=== PATIENT | female | born 1975 | race Caucasian/White ===

== ENCOUNTER 2019-01-13 23:05 | Emergency (ER) | payer SELFPAY ==
--- OUTSIDE RECORDS SUMMARY | 2019-01-13 23:08 | XMS REPORT ---
:1975 [facility] Address [address] [place] [address] [address] [place] [address] Care Team Providers Name Role Phone Unavailable Unavailable Unavailable Problems This patient has no known problems. Allergies, Adverse Reactions, Alerts This patient has no known allergies or adverse reactions. Medications This patient has no known medications.
[2019-01-14] MEDS ORDERED: dexAMETHasone 4 MG TAB ONE (00:29)
--- NOTE | 2019-01-14 00:42 | ER ---
Nurse's Notes [facility] Name: [place] Age: 43 yrs Sex: Female : 1975 Arrival Date: 01/13/2019 Time: 23:10 Bed 14 Private MD: Diagnosis: Acute pharyngitis;Cough Presentation: 01/13 23:15 Presenting complaint: Patient states: "My cough started today, and tonight just when I cc3 woke up at 10PM I began to have sore throat and lose my voice". Transition of care: patient was not received from another setting of care. Onset of symptoms was January 13, 2019 at 22:00. Risk Assessment: Do you want to hurt yourself or someone else? Patient reports no desire to harm self or others. Initial Sepsis Screen: Does the patient meet any 2 criteria? No. Patient's initial sepsis screen is negative. Does the patient have a suspected source of infection? Yes: Productive cough/pneumonia. Care prior to arrival: None. 23:15 Method Of Arrival: Ambulatory cc3 23:15 Acuity: CHARISSE 3 cc3 Triage Assessment: 23:30 General: Appears in no apparent distress. Behavior is calm, cooperative, appropriate wh for age. Respiratory: Airway is patent Respiratory effort is even, unlabored, Respiratory pattern is regular, symmetrical. Historical: - Allergies: 23:15 No Known Allergies; cc3 - Home Meds: 23:15 levothyroxine 100 mcg tab 1 tab once daily [Active]; Fluoxetine Oral [Active]; Flonase cc3 Nasal [Active]; Albuterol Inhl [Active]; loratadine oral oral [Active]; - PMHx: 23:15 Hypothyroidism; Asthma; cc3 - PSHx: 23:15 Hysterectomy; cc3 - Immunization history:: Adult Immunizations not up to date. - Social history:: Smoking status: Patient uses tobacco products, smokes one pack cigarettes per day. - Ebola Screening: : No symptoms or risks identified at this time. Screenin:30 Abuse screen: Denies threats or abuse. Denies injuries from another. Nutritional wh screening: No deficits noted. Tuberculosis screening: No symptoms or risk factors identified. Fall Risk None identified. Assessment: 23:30 General: Appears in no apparent distress. Behavior is calm, cooperative, appropriate wh for age. Pain: Complains of pain in Sore Throat. Neuro: Level of Consciousness is awake, alert, obeys commands, Oriented to person, place, time, situation, Appropriate for age. Cardiovascular: Heart tones S1 S2 Capillary refill < 3 seconds. Respiratory: Airway is patent Respiratory effort is even, unlabored, Respiratory pattern is regular, symmetrical, Breath sounds are clear bilaterally. GI: Abdomen is flat, non-distended. : No signs and/or symptoms were reported regarding the genitourinary system. EENT: Throat is pink. Derm: Skin is intact, is healthy with good turgor, Skin is pink, warm \\T\\ dry. normal. Musculoskeletal: Circulation, motion, and sensation intact. 01/14 00:35 Reassessment: Patient appears in no apparent distress at this time. No changes from previously documented assessment. Patient and/or family updated on plan of care and expected duration. Pain level reassessed. Patient is alert, oriented x 3, equal unlabored respirations, skin warm/dry/pink. Vital Signs: 01/13 23:15 BP 149 / 97; Pulse 71; Resp 18 S; Temp 98.5(O); Pulse Ox 100% on R/A; Weight 73.94 kg cc3 (R); Height 5 ft. 7 in. (170.18 cm) (R); Pain 6/10; 01/14 00:30 BP 145 / 84; Pulse 70; Resp 18; Pulse Ox 99% on R/A; wh 01/13 23:15 Body Mass Index 25.53 (73.94 kg, 170.18 cm) cc3 ED Course: 01/13 23:10 Patient arrived in ED. es 23:17 Lary Hernandez FNP-C is PHCP. snw 23:18 Neno Gallagher MD is Attending Physician. snw 23:30 Patient has correct armband on for positive identification. Bed in low position. Call light in reach. Side rails up X 1. Pulse ox on. NIBP on. 23:30 Arm band placed on right wrist. wh 23:32 Triage completed. cc3 23:38 Sophia Wang is Primary Nurse. 01/14 00:30 No provider procedures requiring assistance completed. Patient did not have IV access during this emergency room visit. Administered Medications: 00:31 Drug: Decadron 8 mg Route: PO; 02:50 Follow up: Response: No adverse reaction Outcome: 00:41 Discharge ordered by . shauna 01:00 Discharged to home ambulatory. 01:00 Condition: stable 01:00 Discharge instructions given to patient, Instructed on discharge instructions, follow up and referral plans. medication usage, POC Pharyngitis Demonstrated understanding of instructions, follow-up care, medications, POC Prescriptions given X 1. 01:12 Patient left the ED. Signatures: Lary Hernandez, PATIENT ACCESS SPECIALIST-C PATIENT ACCESS SPECIALIST-Brittanie Singh Winsy Erica Prasad cc3
--- NOTE | 2019-01-14 00:42 | EDPHYS ---
Physician Documentation [facility] Name: Laek Cullen Age: 43 yrs Sex: Female : 1975 Arrival Date: 01/13/2019 Time: 23:10 Bed 14 Private MD: ED Physician Neno Gallagher HPI: 01/14 00:34 This 43 yrs old Female presents to ER via Ambulatory with complaints of snw Congestion, Laryngitis. 00:34 Onset: The symptoms/episode began/occurred suddenly, today. Associated signs and snw symptoms: Pertinent positives: cough, sore throat. It is unknown whether or not the patient has had similar symptoms in the past. 2 weeks ago, pt was started on albuterol inhaler and prozac. Historical: - Allergies: 01/13 23:15 No Known Allergies; cc3 - Home Meds: 23:15 levothyroxine 100 mcg tab 1 tab once daily [Active]; Fluoxetine Oral [Active]; Flonase cc3 Nasal [Active]; Albuterol Inhl [Active]; loratadine oral oral [Active]; - PMHx: 23:15 Hypothyroidism; Asthma; cc3 - PSHx: 23:15 Hysterectomy; cc3 - Immunization history:: Adult Immunizations not up to date. - Social history:: Smoking status: Patient uses tobacco products, smokes one pack cigarettes per day. - Ebola Screening: : No symptoms or risks identified at this time. ROS: 01/14 00:33 Constitutional: Negative for fever, chills, and weight loss, Eyes: Negative for injury, snw pain, redness, and discharge, Neck: Negative for injury, pain, and swelling, Cardiovascular: Negative for chest pain, palpitations, and edema, Respiratory: Negative for shortness of breath, wheezing, and pleuritic chest pain, + cough Abdomen/GI: Negative for abdominal pain, nausea, vomiting, diarrhea, and constipation, Back: Negative for injury and pain, : Negative for injury, bleeding, discharge, and swelling, MS/Extremity: Negative for injury and deformity, Skin: Negative for injury, rash, and discoloration, Neuro: Negative for headache, weakness, numbness, tingling, and seizure, Psych: Negative for depression, anxiety, suicide ideation, homicidal ideation, and hallucinations. ENT: Positive for ear pain, hoarseness, sore throat. Exam: 00:32 Constitutional: This is a well developed, well nourished patient who is awake, alert, snw and in no acute distress. Head/Face: Normocephalic, atraumatic. Eyes: Pupils equal round and reactive to light, extra-ocular motions intact. Lids and lashes normal. Conjunctiva and sclera are non-icteric and not injected. Cornea within normal limits. Periorbital areas with no swelling, redness, or edema. Neck: Trachea midline, no thyromegaly or masses palpated, and no cervical lymphadenopathy. Supple, full range of motion without nuchal rigidity, or vertebral point tenderness. No Meningismus. Chest/axilla: Normal chest wall appearance and motion. Nontender with no deformity. No lesions are appreciated. Cardiovascular: Regular rate and rhythm with a normal S1 and S2. No gallops, murmurs, or rubs. Normal PMI, no JVD. No pulse deficits. Respiratory: Lungs have equal breath sounds bilaterally, clear to auscultation and percussion. No rales, rhonchi or wheezes noted. No increased work of breathing, no retractions or nasal flaring. Abdomen/GI: Soft, non-tender, with normal bowel sounds. No distension or tympany. No guarding or rebound. No evidence of tenderness throughout. Back: No spinal tenderness. No costovertebral tenderness. Full range of motion. Skin: Warm, dry with normal turgor. Normal color with no rashes, no lesions, and no evidence of cellulitis. MS/ Extremity: Pulses equal, no cyanosis. Neurovascular intact. Full, normal range of motion. Neuro: Awake and alert, GCS 15, oriented to person, place, time, and situation. Cranial nerves II-XII grossly intact. Motor strength 5/5 in all extremities. Sensory grossly intact. Cerebellar exam normal. Normal gait. Psych: Awake, alert, with orientation to person, place and time. Behavior, mood, and affect are within normal limits. 00:32 ENT: External ear(s): are unremarkable, Ear canal(s): are normal, TM's: are normal, Nose: is normal, Mouth: Oral mucosa: moist, Posterior pharynx: erythema, that is mild, Voice: is normal. Vital Signs: 01/13 23:15 BP 149 / 97; Pulse 71; Resp 18 S; Temp 98.5(O); Pulse Ox 100% on R/A; Weight 73.94 kg cc3 (R); Height 5 ft. 7 in. (170.18 cm) (R); Pain 6/10; 01/14 00:30 BP 145 / 84; Pulse 70; Resp 18; Pulse Ox 99% on R/A; wh 01/13 23:15 Body Mass Index 25.53 (73.94 kg, 170.18 cm) cc3 MDM: 01/13 23:37 Patient medically screened. snw 01/14 00:42 Data reviewed: vital signs, nurses notes. Data interpreted: Pulse oximetry: on room air snw is 100 %. Interpretation: normal. Counseling: I had a detailed discussion with the patient and/or guardian regarding: the historical points, exam findings, and any diagnostic results supporting the discharge/admit diagnosis, lab results, the need for outpatient follow up, to return to the emergency department if symptoms worsen or persist or if there are any questions or concerns that arise at home. Special discussion: I have referred the patient to see his PCP for further evaluation of high blood pressure. Based on the history and exam findings, there is no indication for further emergent testing or inpatient evaluation. I discussed with the patient/guardian the need to see the primary care provider for further evaluation of the symptoms. 00:43 Counseling: I had a detailed discussion with the patient and/or guardian regarding: snw smoking cessation. 01/13 23:32 Order name: Flu; Complete Time: 00:23 snw 01/13 23:32 Order name: Strep; Complete Time: 00:23 snw 01/14 00:22 Order name: Throat Culture EDMS Administered Medications: 00:31 Drug: Decadron 8 mg Route: PO; 02:50 Follow up: Response: No adverse reaction Disposition: 01:43 Co-signature as Attending Physician, Neno Gallagher MD. rn Disposition: 01/14/19 00:41 Discharged to Home. Impression: Acute pharyngitis, Cough. - Condition is Stable. - Discharge Instructions: Fever, Adult, Pharyngitis, Cool Mist Vaporizer, Cough, Adult, [id number], Rehydration, Adult. - Prescriptions for Tessalon Perles 100 mg Oral Capsule - take 1 capsule by ORAL route every 8 hours As needed; 15 capsule. - Work release form, Medication Reconciliation Form, Thank You Letter, Antibiotic Education, Prescription Opioid Use form. - Follow up: Private Physician; When: 2 - 3 days; Reason: Recheck today's complaints, Continuance of care, Re-evaluation by your physician. Follow up: Emergency Department; When: As needed; Reason: Worsening of condition. Signatures: Dispatcher [employer] EDLary Hernandez, BRICE-C GRADING MACHINE FEEDER-Csnw Neno Gallagher MD MD rn Habalo, Winsy wh Cordel, Charlene cc3 Corrections: (The following items were deleted from the chart) 01:12 00:41 01/14/2019 00:41 Discharged to Home. Impression: Acute pharyngitis; Cough. wh Condition is Stable. Forms are Medication Reconciliation Form, Thank You Letter, Antibiotic Education, Prescription Opioid Use. Follow up: Private Physician; When: 2 - 3 days; Reason: Recheck today's complaints, Continuance of care, Re-evaluation by your physician. Follow up: Emergency Department; When: As needed; Reason: Worsening of condition. snw
[2019-01-14 01:35] VITALS: BP 149/97; TEMP 98.5; O2SAT 100
== END 2019-01-14 01:12 | disposition home or self-care (01) ==
LOC: ER 23:05
DX: J02.9 Acute pharyngitis, unspecified (principal); R05 Cough; E03.9 Hypothyroidism, unspecified; J45.909 Unspecified asthma, uncomplicated; F17.210 Nicotine dependence, cigarettes, uncomplicated
CPT/HCPCS: 87070; 87081; 87804; 99283; J8540